=== PATIENT | female | born 1990 | race Caucasian/White ===

== ENCOUNTER 2019-07-08 14:06 | Day surgery (SDC) | payer OTHER ==
[~2019-07-08] VITALS: Ht 157.5 cm; Wt 42.6 kg
--- NOTE | ~2019-07-08 | O ---
[facility] [address] [place] [address] OPERATIVE REPORT Name: DARIO ECHEVERRIA Room #: 150-5 [facility]#: [id number] Admission: 07/08/19 Attend Phys: Demetrio Pulido MD Discharge: Date of : 86 Report #: [id number] THIS REPORT FOR: //name// CC: Flory Pulido DATE OF SERVICE: 07/08/2019 PREOPERATIVE DIAGNOSES: Deviated nasal septum with nasal airway obstruction, Graves' disease with proptosis. POSTOPERATIVE DIAGNOSES: Deviated nasal septum with nasal airway obstruction, Graves' disease with proptosis. OPERATIVE PROCEDURE: Nasal septoplasty, left endoscopic medial and inferior orbital wall decompression in conjunction with a lateral transcutaneous decompression and tarsorrhaphy. SURGEONS: Dale Mitchell MD and Dr. Demetrio Pulido. ANESTHESIA: General by laryngeal mask. DESCRIPTION OF PROCEDURE: The patient was taken to the operating room and placed in supine position. General anesthesia was induced by laryngeal mask. Once adequate general anesthesia was obtained, local nasal anesthesia was induced by submucoperichondrial injection of 1% lidocaine with 1:100,000 epinephrine and topical application of cocaine solution. The patient was then draped in a sterile manner. The patient had a nasal septal deviation primarily to the left side. A hemitransfixion incision was placed on the left side of the nose and the mucoperichondrium and mucoperiosteum was elevated off the septum. The cartilage was incised in front of the bony cartilaginous junction and a portion of cartilage and bone was removed from the midportion of the septum. There was a septal spur along the floor consisting of hypertrophic cartilage and a fracture of the maxillary crest. The cartilage was removed as a long strip and the maxillary crest was infractured, chiseled and rongeured. After these maneuvers, the septum sat more in the midline. The hemitransfixion incision was then closed with 4-0 chromic suture and a 4-0 plain mattress sutures placed as well. The nasal endoscope was used to visualize the left nasal cavity and the middle turbinate was deviated medially. The uncinate process was removed using the microdebrider and the natural opening of the maxillary sinus was located. It was enlarged in a posterior inferior manner by removing the soft fontanelle. An ethmoidectomy was performed by removing the ethmoidal bulla and then following the ethmoid air cells back to and through the basal lamella and then forward along the lamina papyracea and fovea ethmoidalis to complete the ethmoidectomy anteriorly. The lamina papyracea bone was exposed from the anterior face of the sphenoid posteriorly to the fovea ethmoidalis superiorly to [address] [address] OPERATIVE REPORT Name: DARIO ECHEVERRIA Room #: 150-5 [facility] M.R.#: [id number] Admission: 07/08/19 Attend Phys: Demetrio Pulido MD Discharge: Date of : 86 Report #: [id number] the root of the uncinate process anteriorly and into the maxillary sinus inferiorly. The bone was slowly chipped away to expose the underlying periorbita. The periorbita was then incised in two horizontal incisions. These were then connected in the middle and the orbital fat was allowed to prolapse into the ethmoid cavity. A rolled piece of MeroGel was placed between the middle turbinate and lateral wall of the nose to prevent scarring and to promote hemostasis. At this point, Dr. Pulido performed a lateral transcutaneous decompression and tarsorrhaphy. At the conclusion, the patient was then awoken and taken to the recovery room in stable condition for postoperative monitoring. Blood loss for the procedure was 25 mL. By: [id number] Dale Mitchell MD /nt
--- NOTE | ~2019-07-08 | O ---
[facility] [address] [place] [address] OPERATIVE REPORT Name: DARIO ECHEVERRIA Room #: 150-5 [facility]#: [id number] Admission: 07/08/19 Attend Phys: Demetrio Pulido MD Discharge: Date of : 86 Report #: [id number] THIS REPORT FOR: //name// CC: Flory Pulido DATE OF SERVICE: 07/08/2019 PREOPERATIVE DIAGNOSIS: Graves' disease. POSTOPERATIVE DIAGNOSIS: Graves' disease. PROCEDURE: Transcutaneous left lateral orbital decompression with temporary tarsorrhaphy. SURGEON: Demetrio Pulido MD. [employer]: Dale Mitchell MD ANESTHESIA: General. COMPLICATIONS: None. ESTIMATED BLOOD LOSS: 25 mL. INDICATIONS FOR SURGERY: This pleasant 29-year-old woman with Graves' disease and dry eyes, lid retraction proptosis presents for endoscopic medial wall and floor orbital decompression done in conjunction with a transcutaneous lateral orbital decompression and temporary tarsorrhaphy. Informed consent was obtained to include but not limited to the potential risk for loss of vision, double vision, bleeding, infection, failure to improve the problem, scarring, the potential need for other surgery including surgery for double vision. DESCRIPTION OF OPERATION: The patient was taken to the operating room, where general anesthesia was administered. The lateral upper lid was then anesthetized with 2% Xylocaine with epinephrine mixed with equal parts of 0.75% Marcaine with Wydase. The infratemporal fossa was then anesthetized with the same anesthetic mixture. The patient was subsequently prepped and draped in the usual sterile fashion. Dr. Mitchell prepared the nose with vasoconstrictive-soaked Cottonoids and intranasal mucosal injections. The patient received intravenous Decadron and antibiotics at the beginning of the procedure. [address] [address] OPERATIVE REPORT Name: DARIO ECHEVERRIA Room #: 150-5 [facility]#: [id number] Admission: 07/08/19 Attend Phys: Demetrio Pulido MD Discharge: Date of : 86 Report #: [id number] After being sterilely prepped and draped, a temporary tarsorrhaphy was fashioned from a short section of IV tubing and a double-armed 5-0 nylon suture. It was placed at the junction of the medial 2/3 and the 1/3 of the eyelid. The transnasal portion of the procedure was then resumed. After the transnasal, endoscopic, medial wall and floor, and orbital decompression had been accomplished and the nose repacked with vasoconstrictive-soaked Cottonoids, the extended upper lid crease incision was reanesthetized. The Cottonoids were removed and the periosteum was opened to allow the fat transnasally to decompress into the newly created space. The nose was then repacked and gloves were changed and instruments switched out as the lateral orbital decompression was commenced. A curvilinear incision was initially outlined and then made with a 15-C blade, extending a lid crease incision into the infratemporal fossa. The dissection was then carried down to periosteum with the Person needle, obtaining hemostasis with diligent monopolar cautery. The periosteum was then sharply incised and then gently reflected medially out of the lateral orbit. The zygomatic facial and zygomatic temporal neurovascular bundles were identified and cauterized as they were encountered. The orbital contents were then retracted and protected with the malleable retractor as the skin from the inferior portion of the wound was protected with a skin rake. A 3.5-mm cutting/irrigating drill was then used to thin the bone at the lateral orbit. The anterior limit of the dissection was the lateral orbital rim. The superior and inferior limits of the dissection were the orbital roof and floor respectively. Hemostasis was reachieved with monopolar cautery and judicious use of bone wax. The periosteum of the lateral orbit was then incised with the Person needle. A large H-shaped flap in the periosteum was then created, allowing the fat to billow out into the newly created space. The periosteum was then closed with interrupted buried 5-0 Vicryl sutures. The subcutaneous structures were closed with interrupted 5-0 Vicryl sutures. The skin was then closed with 6-0 plain gut sutures. The wound was dressed with erythromycin ointment followed by Telfa pad. The temporary nasal packing was removed and absorbable nasal pack placed. The patient was subsequently transported to the recovery area, having tolerated the procedure well with no anesthetic or operative complications being noted. By: [id number] Demetrio Pulido MD /nt
--- NOTE | 2019-07-08 07:41 | H ---
[facility] [address] [place] [address] HISTORY AND PHYSICAL Name: DARIO ECHEVERRIA Room #: PRE [facility]#: [id number] Admission: Attend Phys: Demetrio Pulido MD Discharge: Date of : 86 Report #: [id number] THIS REPORT FOR: //name// CC: Flory Pulido Her procedure is scheduled for the 07/08/2019. HISTORY OF PRESENT ILLNESS: The patient has Graves' disease. It was diagnosed 12 years ago. Over the last 2-3 years, she has begun to have problems with her eyes. She has especially dry eyes and cannot close her eyes while she is asleep. She cannot lay on her left side because her nose plugs up with difficulty breathing through her nose on a regular basis. The left eye is more proptotic and causes problems. CT scan of her sinuses shows proptosis of the eyes with enlargement of the extraocular muscles and prominent orbital fat. She has a deviated nasal septum to the right side with the septum indenting the inferior turbinate. PAST MEDICAL HISTORY: Otherwise, not significant. MEDICATIONS: Include PTU, Depakote, fluoxetine. ALLERGIES: She has no known drug allergies. PHYSICAL EXAMINATION: She has a deviated nasal septum to the right side with the septum indenting the inferior turbinates. Her oropharynx and oral cavity were clear. She had no adenopathy or masses in her neck. IMPRESSION: Graves' disease with proptosis, deviated nasal septum with nasal airway obstruction. PLAN: Nasal septoplasty, left eye endoscopic medial and inferior orbital wall decompression in conjunction with a lateral transcutaneous decompression with Dr. Pulido. <ELECTRONICALLY SIGNED> By: Dale Mitchell MD 07/08/19 0741 [id number] [id number] Dale Mitchell MD /nt
[~2019-07-08 14:06] MED LIST: DIVALPROEX SOD250 M3 PO; FLUOXETINE HCL40 MG PO; PROPYLTHIOURACI50 MG PO
[2019-07-08 15:22] VITALS: BP 101/60
== END 2019-07-08 18:55 | disposition home or self-care (01) ==
LOC: TBA 14:06 → OR 14:06 → EDSEX 14:06 → TBA 14:10 → OR 14:44
DX: J34.2 Deviated nasal septum (principal); E05.00 Thyrotoxicosis with diffuse goiter without thyrotoxic crisis or storm; J34.89 Other specified disorders of nose and nasal sinuses; F31.9 Bipolar disorder, unspecified; F17.210 Nicotine dependence, cigarettes, uncomplicated; Z98.51 Tubal ligation status; Z98.890 Other specified postprocedural states; Z79.899 Other long term (current) drug therapy
CPT/HCPCS: 50010; 50101; 50386; 50398; 50573; 51636; 53635; 55340; 56524; 56528; 56531; 56635; 57246; 62110; 62900; 64037; 70005